=== PATIENT | male | born 1955 | race Caucasian/White ===

== ENCOUNTER 2017-10-08 10:56 | Emergency (ER) | payer OTHER ==
[2017-10-08] MEDS: ALBUTEROL 0.083% (NEB) 2.5 MG/3 ML AMP HHN (14:18)
[2017-10-08] MEDS: IPRATROPIUM (NEB) 0.5 MG/2.5 ML AMP HHN (14:18)
[2017-10-08 15:23] LABS: ADD MAN DIFF? NO
[2017-10-08 15:28] LABS: BASOPHIL # 0.1 10^3/ul (0.0-0.1); BASOPHILS % 1.4 % (0.0-2.0); EOSINOPHILS # 0.2 10^3/ul (0.0-0.5); EOSINOPHILS % 3.3 % (0.0-7.0); HEMATOCRIT 42.9 % (42.0-52.0); HEMOGLOBIN 14.7 g/dl (14.0-18.0); LYMPHOCYTES # 3.1 10^3/ul (0.8-2.9); LYMPHOCYTES % 44.6 % (15.0-51.0); MEAN CORPUSCULAR HEMOGLOBIN 30.6 pg (29.0-33.0); MEAN CORPUSCULAR HGB CONC 34.3 g/dl (32.0-37.0); MEAN CORPUSCULAR VOLUME 89.4 fl (82.0-101.0); MEAN PLATELET VOLUME 9.8 fl (7.4-10.4); MONOCYTE # 1.2 10^3/ul (0.3-0.9); MONOCYTES % 16.5 % (0.0-11.0); NEUTROPHIL # 2.4 10^3/ul (1.6-7.5); NEUTROPHILS % 33.6 % (39.0-77.0); PLATELET COUNT 156 10^3/UL (140-415); RED CELL DISTRIBUTION WIDTH 13.2 % (11.5-14.5)
[2017-10-08 15:43] LABS: ANION GAP 20 (8-16); BLOOD UREA NITROGEN 14 mg/dl (7-20); CALCIUM 9.1 mg/dl (8.4-10.2); CARBON DIOXIDE 25 mmol/L (21-31); CHLORIDE 103 mmol/L (97-110); CREATININE 1.47 mg/dl (0.61-1.24); GLUCOSE 109 mg/dl (70-220); SODIUM 144 mmol/L (135-144)
[2017-10-08 15:55] LABS: B-TYPE NATRIURETIC PEPTIDE 29 PG/ML (0-125)
[2017-10-08 15:59] LABS: TROPONIN-I < 0.012 ng/ml (0.00-0.12)
== END 2017-10-08 16:47 | disposition home or self-care (01) ==
LOC: FTE 10:56
DX: J44.1 Chronic obstructive pulmonary disease with (acute) exacerbation (principal); J06.9 Acute upper respiratory infection, unspecified; N28.9 Disorder of kidney and ureter, unspecified; Z79.82 Long term (current) use of aspirin
CPT/HCPCS: 36415; 71045; 80048; 83880; 84484; 85025; 93005; 94664; 99285-25

== ENCOUNTER 2019-05-12 11:43 | Day surgery (SDC) | payer OTHER ==
[2019-05-12] MEDS ORDERED: FENTAnyl 50 MCG/ML VIAL IV (16:00)
[2019-05-12] MEDS ORDERED: EPHEDrine 25 MG/5 ML SYG IV (16:00)
[2019-05-12] MEDS ORDERED: ONDANSETRON 4 MG INJ IV (16:00)
[2019-05-12] MEDS ORDERED: LABETALOL HCL 20MG INJ IV (16:00)
== END 2019-05-12 16:43 | disposition home or self-care (01) ==
LOC: GIL 11:43
DX: Z12.11 Encounter for screening for malignant neoplasm of colon (principal); D12.5 Benign neoplasm of sigmoid colon; K57.30 Diverticulosis of large intestine without perforation or abscess without bleeding; K64.8 Other hemorrhoids; I12.9 Hypertensive chronic kidney disease with stage 1 through stage 4 chronic kidney disease, or unspecified chronic kidney disease; E11.22 Type 2 diabetes mellitus with diabetic chronic kidney disease; N18.9 Chronic kidney disease, unspecified; G47.00 Insomnia, unspecified; Z86.73 Personal history of transient ischemic attack (TIA), and cerebral infarction without residual deficits
CPT/HCPCS: 45380; 82962; 88305